=== PATIENT | male | born 1975 | race Caucasian/White ===

== ENCOUNTER 2022-04-19 19:56 | Observation (INO) | payer BC, SELFPAY ==
--- NOTE | ~2022-04-19 | XR_ITS ---
EXAMINATION: XR CHEST CLINICAL INFORMATION: Shortness of breath. COMPARISON: Chest radiograph 01/18/2017. TECHNIQUE: AP view of the chest was obtained. FINDINGS: Multifocal interstitial opacities. No pleural effusion. No pneumothorax. Stable appearance of the cardiomediastinal silhouette including prominence of the central pulmonary vasculature. No acute osseous abnormalities. EKG wires overlie the chest. XR/XR chest 1V IMPRESSION: Multifocal interstitial opacities are nonspecific but could be seen in the setting of atypical infection, correlate clinically. Repeat chest x-ray after treatment recommended.
[2022-04-19 20:13] VITALS: BP 148/92; PULSE 98; RESP 18; TEMP 36; O2SAT 100; BMI 28.7
--- NOTE | 2022-04-19 20:18 | ECG_ITS ---
Test Reason : swelling Blood Pressure : / mmHG Vent. Rate : 088 BPM Atrial Rate : 088 BPM P-R Int : 136 ms QRS Dur : 100 ms QT Int : 350 ms P-R-T Axes : 065 069 017 degrees QTc Int : 423 ms Sinus rhythm with Premature atrial complexes Septal infarct , age undetermined Abnormal ECG When compared with ECG of 16-OCT-2003 16:37, Premature atrial complexes are now Present Incomplete right bundle branch block is no longer Present Septal infarct is now Present Referred By: Generic ED Physician Electronically Signed By:Brian Winn
[2022-04-19 20:34] LABS: MANUAL DIFF FLAG NO
[2022-04-19 20:35] LABS: Basophils Percent Auto 0.4 % (0-2); Eosinophils Absolute Auto 0.1 X10*3/uL (0.0-0.4); Eosinophils Percent Auto 1.3 % (0-4); Hematocrit 38.1 % (42.0-52.0); Hemoglobin 13.7 g/dl (14.0-18.0); Imm Gran Abs Auto 0.01 X10*3/uL (0.00-0.03); Imm Gran Pct Auto 0.1 % (0.0-0.4); Lymphocytes Absolute Auto 2.1 X10*3/uL (1.2-4.9); Lymphocytes Percent Auto 25.9 % (20-40); Mean Corpuscular Hemoglobin 31.9 pg (27.0-33.0); Mean Corpuscular Volume 88.8 fL (80.0-98.0); Mean Platelet Volume 10.4 fL (9.4-12.4); Monocytes Absolute Auto 0.7 X10*3/uL (0.1-1.2); Monocytes Percent Auto 8.4 % (2-11); Neutrophils Absolute Auto 5.2 x10*3/uL (2.0-8.3); Neutrophils Percent Auto 63.9 % (45-73); Platelet Count 172 X10*3/uL (160-400); Red Blood Count 4.29 X10*6/uL (4.60-5.80); Red Cell Distribution Width 13.2 % (11.0-16.0); White Blood Count 8.2 X10*3/uL (4.8-10.8)
[2022-04-19 20:54] LABS: Alanine Aminotransferase 27 U/L (0-40); Albumin Level 3.6 g/dL (3.5-5.0); Alkaline Phosphatase 120 U/L (39-117); Anion Gap 11 (12-20); Aspartate Amino Transferase 9 U/L (5-37); Bilirubin Direct 0.5 mg/dL (0.0-0.5); Bilirubin Total 1.1 mg/dL (0.0-1.0); Blood Urea Nitrogen 11 mg/dL (9-16); Calcium 8.5 mg/dL (8.4-10.2); Carbon Dioxide 27 mmol/L (22-29); Chloride 105 mmol/L (96-108); Creatinine Clr Calc Pharmacy 112.5; Estimated Glomerular Filt Rate > 60; Glucose Random 188 mg/dL (60-115); Potassium 3.9 mmol/L (3.3-5.1); Sodium 139 mmol/L (135-145); Total Protein 6.1 g/dL (6.5-8.0)
[2022-04-19 21:01] LABS: B Type Natriuretic Peptide 346 pg/mL (<100); Troponin-I High Sensitivity 11.2 ng/L (<3.5-35.0)
[2022-04-19 22:24] VITALS: BP 155/92; PULSE 82; RESP 18; O2SAT 96
--- NOTE | 2022-04-19 22:50 | ED.GENADULT ---
HPI - General Adult General Chief complaint: General Medical Stated complaint: swollen feet, bloated Time Seen by Provider: 04/19/22 22:44 Source: patient and family Mode of arrival: ambulatory History of Present Illness HPI narrative: 46-year-old male, diabetic, presents with acute onset of shortness of breath as well for as noted bilateral feet swelling since this past that is not been associated with any fever, chills, sore throat, but he has had a cough and adamantly denies any chest pain/ racing heart/palpitations and states he has had some abdominal bloating without associated nausea, vomiting, diarrhea, patient has had a BM today and states that he is still passing flatus. Patient denies any urinary pain/ burning /frequency. 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 Related Data Allergies Allergy/AdvReac Type Severity Reaction Status Date / Time No Known Allergies Allergy Unverified 06/20/20 15:14 [No Known Allergies*] Review of Systems Review of Systems: Pertinent positives and negatives as stated in HPI 10 point Review of systems is otherwise negative. [facility] Past Medical History Source: nursing notes reviewed Social History Social History Advance Directives: No Advance Directives Information Provided: No Physical Exam ED Vital Signs: Vital Signs - 24 hr 04/19/22 20:13 04/19/22 22:24 Temperature 96.8 F Pulse Rate 98 82 Respiratory Rate 18 18 Blood Pressure 148/92 H 155/92 H Pulse Oximetry 100 96 Oxygen Delivery Method Room Air Room Air BMI result Body Mass Index 28.7 VITAL SIGNS: Reviewed. GENERAL: Well developed, well nourished, in no acute distress. HEAD: Normocephalic/atraumatic EYES: PERRLA, EOMI EARS: Ext canals without abnormality OROPHARYNX: no oral lesions noted, posterior pharynx clear LUNGS: Normal breath sounds. No adventitious sounds or accessory muscle use. SpO2<100> CARDIOVASCULAR: Regular rate and rhythm without noted murmurs, no JVD but bilateral lower feet swelling ABDOMEN: Soft, non-tender, non-distended with bowel sounds. MUSCULOSKELETAL: No tenderness, deformities, or effusions noted on gross inspection. EXTREMITIES: No cyanosis, clubbing or edema. SKIN: Inspection of the skin reveals no rashes NEUROLOGIC: Alert and oriented x 4. Strength and sensation to light touch were grossly intact x 4. Course Course Course Narrative: 46-year-old male with history and clinical presentation after review of all laboratory workup consistent with CHF exacerbation of unknown etiology but suspect cardiac despite serial troponins being flat and detectable there are Q-wave changes on EKG which were not present in 2004. Patient is otherwise asymptomatic for chest pain, COVID is negative, D-dimer -213. This case was discussed with Cardiology who recommends trending troponins, I discussed this case with the hospitalist who accepts admission. Patient was informed of all plans and results. Medical Decision Making Lab Data Result diagrams: 04/19/22 20:27 04/19/22 20:27 Labs: Lab Results 04/19/22 04/19/22 04/19/22 Range/Units 20:27 20:27 20:27 WBC 8.2 (4.8-10.8) X10*3/uL RBC 4.29 L (4.60-5.80) X10*6/uL Hgb 13.7 L (14.0-18.0) g/dl Hct 38.1 L (42.0-52.0) % MCV 88.8 (80.0-98.0) fL MCH 31.9 (27.0-33.0) pg MCHC 36.0 (31.0-36.0) g/dl RDW 13.2 (11.0-16.0) % Plt Count 172 (160-400) X10*3/uL MPV 10.4 (9.4-12.4) fL Immature Gran % (Auto) 0.1 (0.0-0.4) % Neut % (Auto) 63.9 (45-73) % Lymph % (Auto) 25.9 (20-40) % [place] % (Auto) 8.4 (2-11) % Eos % (Auto) 1.3 (0-4) % Baso % (Auto) 0.4 (0-2) % Lymph # (Auto) 2.1 (1.2-4.9) X10*3/uL [place] # (Auto) 0.7 (0.1-1.2) X10*3/uL Eos # (Auto) 0.1 (0.0-0.4) X10*3/uL Baso # (Auto) 0.0 (0.0-0.2) X10*3/uL Abs Immat Gran (auto) 0.01 (0.00-0.03) X10*3/uL Absolute Neuts (auto) 5.2 (2.0-8.3) x10*3/uL Absolute Nucleated RBC 0.000 (0.0-0.012) X10*3/uL Nucleated RBC % (auto) 0.0 (0.0-0.2) /100WBC D-Dimer High Sensitivty NG/ML Sodium 139 (135-145) mmol/L Potassium 3.9 (3.3-5.1) mmol/L Chloride 105 (96-108) mmol/L Carbon Dioxide 27 (22-29) mmol/L Anion Gap 11 L (12-20) BUN 11 (9-16) mg/dL Creatinine 0.81 (0.5-1.4) mg/dL Estim Creat Clear Calc 112.5 Estimated GFR > 60 Random Glucose 188 H (60-115) mg/dL Calcium 8.5 (8.4-10.2) mg/dL Total Bilirubin 1.1 H (0.0-1.0) mg/dL Direct Bilirubin 0.5 (0.0-0.5) mg/dL AST 9 (5-37) U/L ALT 27 (0-40) U/L Alkaline Phosphatase 120 H (39-117) U/L Troponin I High Sens 11.2 (<3.5-35.0) ng/L B-Natriuretic Peptide 346 H (<100) pg/mL Total Protein 6.1 L (6.5-8.0) g/dL Albumin 3.6 (3.5-5.0) g/dL Lipase 7 L (8-78) U/L COVID-19 (BUCKY) (Negative) COVID-19 Clin Com 04/19/22 04/19/22 04/19/22 Range/Units 23:21 23:26 23:26 WBC (4.8-10.8) X10*3/uL RBC (4.60-5.80) X10*6/uL Hgb (14.0-18.0) g/dl Hct (42.0-52.0) % MCV (80.0-98.0) fL MCH (27.0-33.0) pg MCHC (31.0-36.0) g/dl RDW (11.0-16.0) % Plt Count (160-400) X10*3/uL MPV (9.4-12.4) fL Immature Gran % (Auto) (0.0-0.4) % Neut % (Auto) (45-73) % Lymph % (Auto) (20-40) % [place] % (Auto) (2-11) % Eos % (Auto) (0-4) % Baso % (Auto) (0-2) % Lymph # (Auto) (1.2-4.9) X10*3/uL [place] # (Auto) (0.1-1.2) X10*3/uL Eos # (Auto) (0.0-0.4) X10*3/uL Baso # (Auto) (0.0-0.2) X10*3/uL Abs Immat Gran (auto) (0.00-0.03) X10*3/uL Absolute Neuts (auto) (2.0-8.3) x10*3/uL Absolute Nucleated RBC (0.0-0.012) X10*3/uL Nucleated RBC % (auto) (0.0-0.2) /100WBC D-Dimer High Sensitivty 213 NG/ML Sodium (135-145) mmol/L Potassium (3.3-5.1) mmol/L Chloride (96-108) mmol/L Carbon Dioxide (22-29) mmol/L Anion Gap (12-20) BUN (9-16) mg/dL Creatinine (0.5-1.4) mg/dL Estim Creat Clear Calc Estimated GFR Random Glucose (60-115) mg/dL Calcium (8.4-10.2) mg/dL Total Bilirubin (0.0-1.0) mg/dL Direct Bilirubin (0.0-0.5) mg/dL AST (5-37) U/L ALT (0-40) U/L Alkaline Phosphatase (39-117) U/L Troponin I High Sens 12.2 (<3.5-35.0) ng/L B-Natriuretic Peptide (<100) pg/mL Total Protein (6.5-8.0) g/dL Albumin (3.5-5.0) g/dL Lipase (8-78) U/L COVID-19 (BUCKY) Negative (Negative) COVID-19 Clin Com See Note ECG Data Attestation: I personally reviewed and interpreted this ECG as follows: Prior ECG tracings: available for review Interpretation: Sinus rhythm with PACs, Q-waves noted in V2/V3, no STEMI, HR- 88, NM / QRS / QTC are within normal limits. Critical Care Time Critical Care Time Critical Care Time: Yes Total Critical Care Time: 30 Attestation: I personally attest to this time spent taking care of the patient. Discharge Plan Discharge Patient Disposition: Admitted As Inpatient
[2022-04-19 23:15] LABS: Lipase 7 U/L (8-78)
[2022-04-19 23:42] LABS: D Dimer High Sensitivity 213 NG/ML
[2022-04-19 23:50] LABS: COVID-19 Test Negative (Negative)
[2022-04-19 23:53] LABS: Troponin-I High Sensitivity 12.2 ng/L (<3.5-35.0)
--- NOTE | 2022-04-20 00:02 | PM.IMHP ---
History of Present Illness Date of Service: 04/19/22 Chief Complaint: Shortness of breath, leg swelling This is a 39 male with history of diabetes, diet controlled hypertension, hyperlipidemia presents from home and progressively worsening dyspnea on exertion, and lower extremity swelling. Patient has also noticed fatigue and blood within the abdomen. Patient denies any chest pain, no palpitations, reports symptoms started few days ago y. He has no fever or chills, no abdominal pain nausea or vomiting, no diarrhea constipation, no urinary symptoms and no change in mentation. He is also complaining of PND and orthopnea. On arrival to the ED patient hemodynamically stable with a a slightly elevated BP Labs are significant for WBC count of 8.2, hemoglobin 13.7, BNP of 346, troponin of 11 increased to 12.2 Chest x-ray revealed multifocal interstitial opacities nonspecific. Patient will be admitted for further management Review of Systems Review of Systems: Yes all other systems are reviewed and are negative [facility] Medical History (Updated 04/20/22 @ 06:05 by Kris Gleason MD) Diabetes Hyperlipidemia Hypertension Family History (Updated 04/20/22 @ 06:05 by Kris Gleason MD) Father Coronary artery disease Pertinent family history: His father had a heart attack at the age of 64 Surgical History (Updated 04/20/22 @ 06:05 by Kris Gleason MD) No pertinent past surgical history Social History Patient Tobacco Use Status: Never used Tobacco Smoked in Last 30 Days: No Use of substances other than those prescribed or required for medical reasons: No Advance Directives: No Advance Directives Information Provided: No Meds Allergies Allergy/AdvReac Type Severity Reaction Status Date / Time No Known Allergies Allergy Unverified 06/20/20 15:14 [No Known Allergies*] Active Medications: Current Medications Acetaminophen (Acetaminophen 325 Mg Tablet) 650 mg PO Q6H PRN PRN Reason: Pain, Mild (Pain Scale 1-3) Docusate Sodium (Docusate Sodium 100 Mg Capsule) 100 mg PO DAILY PRN PRN Reason: Constipation Furosemide (Furosemide 40 Mg/4 Ml Vial) 40 mg IVPUSH DAILY ALIDA; Protocol Ondansetron HCl (Ondansetron Hcl 4 Mg/2 Ml Vial) 4 mg IVPUSH Q8H PRN PRN Reason: Nausea and Vomiting Sodium Chloride (0.9 % Sodium Chloride Flush 3 Ml Syringe) 3 ml IVFLUSH QSHIFT ALIDA Physical Exam Vital Signs and Narrative: Vital Signs: Last Vital Signs Temp 96.8 F 04/19/22 20:13 Pulse 82 04/19/22 22:24 Resp 18 04/19/22 22:24 BP 155/92 H 04/19/22 22:24 Pulse Ox 96 04/19/22 22:24 O2 Del Method 04/19/22 22:24 BMI result Body Mass Index 28.7 Const: General: cooperative and no acute distress Orientation/consciousness: patient oriented x3 Eyes: General: appearance normal, both eyes and all related structures Resp: Effort & Inspection: normal respiratory effort Auscultation: clear to auscultation bilaterally Cardio: Rate: regular rate Rhythm: regular rhythm GI: Palpation (GI): Soft to palpation Auscultation: normal bowel sounds Skin: General skin exam: no rashes or lesions noted Neuro: General: patient oriented x3 Cognition (Neuro): normal cognition Extrem: Other: Trace pedal edema in feet General: Yes normal to inspection Results Labs CBC and Chem 7: 04/19/22 20:27 04/19/22 20:27 Labs: Laboratory Results - last 24 hr 04/19/22 04/19/22 04/19/22 20:27 20:27 20:27 MCV 88.8 MCH 31.9 MCHC 36.0 RDW 13.2 Plt Count 172 MPV 10.4 Immature Gran % (Auto) 0.1 Neut % (Auto) 63.9 Lymph % (Auto) 25.9 [place] % (Auto) 8.4 Eos % (Auto) 1.3 Baso % (Auto) 0.4 Lymph # (Auto) 2.1 [place] # (Auto) 0.7 Eos # (Auto) 0.1 Baso # (Auto) 0.0 Abs Immat Gran (auto) 0.01 Absolute Neuts (auto) 5.2 Absolute Nucleated RBC 0.000 Nucleated RBC % (auto) 0.0 D-Dimer High Sensitivty Anion Gap 11 L Estim Creat Clear Calc 112.5 Estimated GFR > 60 Random Glucose 188 H Calcium 8.5 Total Bilirubin 1.1 H Direct Bilirubin 0.5 AST 9 ALT 27 Alkaline Phosphatase 120 H Troponin I High Sens 11.2 B-Natriuretic Peptide 346 H Total Protein 6.1 L Albumin 3.6 Lipase 7 L COVID-19 (BUCKY) COVID-19 Clin Com 04/19/22 04/19/22 04/19/22 23:21 23:26 23:26 MCV MCH MCHC RDW Plt Count MPV Immature Gran % (Auto) Neut % (Auto) Lymph % (Auto) [place] % (Auto) Eos % (Auto) Baso % (Auto) Lymph # (Auto) [place] # (Auto) Eos # (Auto) Baso # (Auto) Abs Immat Gran (auto) Absolute Neuts (auto) Absolute Nucleated RBC Nucleated RBC % (auto) D-Dimer High Sensitivty 213 Anion Gap Estim Creat Clear Calc Estimated GFR Random Glucose Calcium Total Bilirubin Direct Bilirubin AST ALT Alkaline Phosphatase Troponin I High Sens 12.2 B-Natriuretic Peptide Total Protein Albumin Lipase COVID-19 (BUCKY) Negative COVID-19 Clin Com See Note Imaging Radiologist's Impressions: Impressions Chest X-Ray 04/19/22 23:30 IMPRESSION: Multifocal interstitial opacities are nonspecific but could be seen in the setting of atypical infection, correlate clinically. Repeat chest x-ray after treatment recommended. Assessment and Plan (1) Acute exacerbation of CHF (congestive heart failure): Status: Acute (2) New onset of congestive heart failure: Status: Acute Plan 46-year-old male with past medical history of hypertension is controlled off medications at this time, diabetes, and HLD who presents to the hospital with complaints of leg swelling as well as dyspnea on exertion found to have new onset CHF # acute CHF exacerbation in the setting of new onset CHF - patient has evidence of volume overload on chest x-ray, as well as elevated BNP - patient has dyspnea on exertion, PND, orthopnea, trace pedal edema - will treat with Lasix - echocardiogram, low-sodium diet, strict I&O, daily weight - cardiology consult # HTN - patient reports that he has now controlled HTN with no medication - monitor BP # diabetes - diabetic diet -low-dose sliding scale insulin DVT prophylaxis: Lovenox Quality Stroke Does the patient have a stroke diagnosis?: No VTE Prior VTE?: No VTE Risk Level:: Medical - low VTE Device Contraindication: Treatment Not Indicated VTE Drug Contraindication: Treatment Not Indicated
[2022-04-20] MEDS: Furosemide 20 MG/2 ML VIAL IVPUSH (00:47)
[2022-04-20] MEDS: Acetaminophen 325 MG TABLET 650 MG PO (00:53)
--- NOTE | 2022-04-20 03:35 | PC.NURSE ---
pt resting comfortably on stretcher. on playground monitor., vital signs stable. no respiratory distress. using urinal at bedside. call kern within reach
[2022-04-20 03:38] VITALS: PULSE 71; RESP 20; O2SAT 98
[2022-04-20 04:33] VITALS: BP 119/73; PULSE 68; RESP 18; TEMP 36.6; O2SAT 93
[2022-04-20] MEDS: 0.9 % Sodium Chloride Flush 3 ML SYRINGE IVFLUSH ×4 (05:02→22:07)
[2022-04-20 06:03] VITALS: BP 119/73; PULSE 65; RESP 16; O2SAT 94
--- NOTE | 2022-04-20 07:00 | CA_ITS ---
Transthoracic Echocardiogram Patient (Last, First, Middle): Kannan Almeida A Gender: Male Date of : 1975 Age: 46 Procedure Date: 04/20/2022 Procedure Type: Transthoracic Echocardiogram Location: [facility] [place] Height: 167.64 cm Weight: 80.74 kg BSA: 1.90 m2 Heart Rate: bpm BP: 119 / 73 mmHg [employer] Equipment Repairer Inspector: Referring MD: Kris Gleason MD Symptoms: CHF? Study Quality: Good ECG Rhythm: Sinus Conclusions: - Normal left ventricular size and systolic function. There is mildly increased left ventricular wall thickness. The visually estimated ejection fraction is between 55-60%. - E/E prime ratio is between 8 and 15 consistent with indeterminate filling pressures. - Normal right ventricular cavity size and systolic function. - There is mild aortic valve stenosis. The peak aortic velocity is 2.23 m/s. - Mildly elevated right atrial pressure. Findings Left Ventricle Normal left ventricular size and systolic function. There is mildly increased left ventricular wall thickness. The visually estimated ejection fraction is between 55-60%. There is no evidence of regional wall motion abnormalities. Diastolic function is indeterminate on the basis of available data. E/E prime ratio is between 8 and 15 consistent with indeterminate filling pressures. Right Ventricle Normal right ventricular cavity size and systolic function. Atria The left atrium is likely dilated. Aortic Valve The aortic valve was not well visualized. There is mild calcification of the aortic valve. There is mild aortic valve stenosis. The peak aortic velocity is 2.23 m/s. There is no aortic valve regurgitation. Cannot rule out bicuspid aortic valve. Mitral Valve Normal mitral valve structure and function. There is trace mitral valve regurgitation. There is no mitral valve stenosis. Pulmonic Valve The pulmonic valve is likely normal. There is trace pulmonic valve regurgitation. Tricuspid Valve Normal tricuspid valve structure and function. There is trace tricuspid valve regurgitation. Mildly elevated right atrial pressure. There is no evidence of pulmonary hypertension. Great Vessels All visible segments of the aorta are normal in size. The visualized portions of the pulmonary artery and branches are normal. Venous The inferior vena cava is dilated and collapses greater than 50% with inspiration. Pericardium/Pleural There is no evidence of pericardial effusion. Prior Study Comparison No prior study available for comparison. Measurements 2D Linear Measurements IVSd: 1.08 0.6-0.9/0.6-1.0 cm LVIDd: 4.79 3.9-5.3/4.2-5.9 cm LVIDd Index: 2.52 2.4-3.2/2.2-3.1 cm/m2 LVIDs: 3.18 2.0-3.6 cm LVPWd: 1.11 0.7-1.1 cm Ao Root: 3.60 2.1-3.5 cm LA Diam: 4.20 2.7-3.8/3.0-4.0 cm LAIDs Index: 2.21 1.5-2.3 cm/m2 LV Mass: 239.37 67-162/88-224 g LV Mass Index: 125.99 43-95/49-115 g/m2 LVOT Diam: 2.00 3.0+(-)1.3 cm 2D Systolic Function EF 4C: 55.70 >55% EF 2C: 62.70 >55% EF BiP: 60.00 >55% Mitral Valve MV Pk E: 1.08 MV PK A: 0.78 MV Decel Time: 160.00 E/A: 1.40 E'Lateral: 8.92 E'Medial: 9.03 E/E' Med: 12.00 E/E' Lat: 12.10 PHT: 47.00 MVA PHT: 4.68 Decel Mckean: 6.73 Aortic Valve AoV Pk Bo: 2.23 AoV Mn Bo: 1.57 AoV VTI: 0.50 AoV Pk Grad: 20.00 Aov Mn Grad: 11.00 MARIO ALBERTO Cont.VTI: 1.79 LVOT LVOT Pk Bo: 1.13 LVOT Mn Bo: 0.85 LVOT VTI: 0.29 LVOT Pk Grad: 5.00 LVOT Mn Grad: 3.00 LVOT Diam: 2.00 LVOT Area: 3.14 Diastolic Function MV Pk E: 1.08 MV Pk A: 0.78 E/A: 1.40 E'Medial: 9.03 E/E' Med: 12.00 E' Laterial: 8.92 E/E' Lat: 12.10 Tricuspid Valve TR Pk Bo: 2.24 TR Pk Grad: 20.00 RA Press: 8.00 RVSP: 28.00 Great [place]essels Aorta Ao Root-2D: 3.60 2.0-3.7 cm Ao Asc: 3.20 2.1-3.4 cm Pulmonary Valve PV Pk Bo: 1.13 Peak PV Grad: 5.00 Updated in Other Vendor System with Status of Final Brian Winn MD electronically signed on 04/20/2022 12:33:14 PM with status of Final
[2022-04-20 07:41] LABS: MANUAL DIFF FLAG NO
[2022-04-20 07:45] LABS: Basophils Percent Auto 0.5 % (0-2); Eosinophils Absolute Auto 0.2 X10*3/uL (0.0-0.4); Eosinophils Percent Auto 2.4 % (0-4); Hematocrit 39.1 % (42.0-52.0); Imm Gran Abs Auto 0.01 X10*3/uL (0.00-0.03); Imm Gran Pct Auto 0.2 % (0.0-0.4); Lymphocytes Absolute Auto 2.1 X10*3/uL (1.2-4.9); Lymphocytes Percent Auto 31.6 % (20-40); Mean Corpuscular HGB Conc 35.8 g/dl (31.0-36.0); Mean Corpuscular Volume 89.3 fL (80.0-98.0); Mean Platelet Volume 10.4 fL (9.4-12.4); Monocytes Absolute Auto 0.7 X10*3/uL (0.1-1.2); Monocytes Percent Auto 10.6 % (2-11); Neutrophils Absolute Auto 3.6 x10*3/uL (2.0-8.3); Neutrophils Percent Auto 54.7 % (45-73); Platelet Count 177 X10*3/uL (160-400); Red Blood Count 4.38 X10*6/uL (4.60-5.80); Red Cell Distribution Width 13.2 % (11.0-16.0); White Blood Count 6.6 X10*3/uL (4.8-10.8)
[2022-04-20 07:55] LABS: Glucose, Whole Blood 148 mg/dL (60-115)
[2022-04-20 08:00] LABS: Anion Gap 12 (12-20); Blood Urea Nitrogen 13 mg/dL (9-16); Calcium 8.6 mg/dL (8.4-10.2); Carbon Dioxide 29 mmol/L (22-29); Chloride 104 mmol/L (96-108); Estimated Glomerular Filt Rate > 60; Glucose Random 189 mg/dL (60-115); Potassium 4.4 mmol/L (3.3-5.1); Sodium 141 mmol/L (135-145)
--- NOTE | 2022-04-20 09:15 | PM.CNCAR ---
History of Present Illness History of Present Illness Date of Service: 04/20/22 Requesting physician: Kamlesh Guardado Chief complaint: CHF Narrative: 46-year-old gentleman who is presenting with ankle edema, abdominal distension, shortness of breath and orthopnea over the last couple of days. He said he was feeling fine and was quite active as of last week. He is saying that he regularly goes to gym without any exertional symptoms. He usually lifts weight there and does not do any cardio. His day-to-day life he is quite active and walks significantly and did not have any symptoms. Last week he played golf and did not have any symptoms at that time too. He is now presenting with shortness of breath and clinically diagnosed as congestive heart failure. He has been started on IV diuretics with good response and feeling somewhat better. Denying any chest discomfort. He has background diabetes, hypertension and hyperlipidemia. He is a nonsmoker. He drinks occasionally. [facility] Past Medical History Medical History (Updated 04/20/22 @ 06:05 by Kris Gleason MD) Diabetes Hyperlipidemia Hypertension Family History Family History (Updated 04/20/22 @ 06:05 by Kris Gleason MD) Father Coronary artery disease Surgical History Surgical History (Updated 04/20/22 @ 06:05 by Kris Gleason MD) No pertinent past surgical history Social History Social History Patient Tobacco Use Status: Never used Tobacco Smoked in Last 30 Days: No Use of substances other than those prescribed or required for medical reasons: No Advance Directives: No Advance Directives Information Provided: No Meds Allergies Allergy/AdvReac Type Severity Reaction Status Date / Time No Known Allergies Allergy Unverified 06/20/20 15:14 [No Known Allergies*] Active Medications: Current Medications Acetaminophen (Acetaminophen 325 Mg Tablet) 650 mg PO Q6H PRN PRN Reason: Pain, Mild (Pain Scale 1-3) Last Admin: 04/20/22 00:53 Dose: 650 mg Dextrose (Dextrose 50 % 25 Gm/50 Ml Syringe) 25 gm IVPUSH Q15M PRN; Protocol PRN Reason: per Hypoglycemia Standing Ord. Docusate Sodium (Docusate Sodium 100 Mg Capsule) 100 mg PO DAILY PRN PRN Reason: Constipation Furosemide (Furosemide 40 Mg/4 Ml Vial) 40 mg IVPUSH DAILY [facility]; Protocol Glucose (Glucose Gel 15 Gm Gel..Gram.) 15 gm PO Q15M PRN; Protocol PRN Reason: per Hypoglycemia Standing Ord. Insulin Human Lispro (Insulin Lispro 100 Unit/Ml 3 Ml Vial) 0 unit SUBCUT QIDACHS [facility]; Protocol Last Admin: 04/20/22 08:06 Dose: Not Given Ondansetron HCl (Ondansetron Hcl 4 Mg/2 Ml Vial) 4 mg IVPUSH Q8H PRN PRN Reason: Nausea and Vomiting Sodium Chloride (0.9 % Sodium Chloride Flush 3 Ml Syringe) 3 ml IVFLUSH QSHIFT [facility] Last Admin: 04/20/22 05:02 Dose: 3 ml Home Medications Medication Instructions Recorded Confirmed Last Taken Type atorvastatin 20 mg tablet 1 tab PO DAILY 04/20/22 04/20/22 04/18/22 History metformin 1,000 mg tablet 2,000 mg PO DAILY 04/20/22 04/20/22 04/18/22 History Physical Exam Vital Signs: Vital Signs: Last Vital Signs Temp 97.9 F 04/20/22 04:33 Pulse 65 04/20/22 06:03 Resp 16 04/20/22 06:03 BP 119/73 04/20/22 06:03 Pulse Ox 94 04/20/22 06:03 O2 Del Method 04/20/22 06:03 BMI result Body Mass Index 28.7 GENERAL APPEARANCE: in no acute distress, pleasant. NECK: no carotid bruit, + JVD. SKIN: no suspicious lesions, warm and dry. HEART: no murmurs, regular rate and rhythm. LUNGS: clear to auscultation bilaterally. ABDOMEN: soft, nontender. EXTREMITIES: no edema. PERIPHERAL PULSES: equal. NEUROLOGIC: No gross deficits, AAO X 3 Objective Labs and Meds Result diagrams: 04/20/22 07:25 04/20/22 07:25 Lab results: Laboratory Results - last 24 hr 04/19/22 04/19/22 04/19/22 20:27 20:27 20:27 WBC 8.2 RBC 4.29 L Hgb 13.7 L Hct 38.1 L MCV 88.8 MCH 31.9 MCHC 36.0 RDW 13.2 Plt Count 172 MPV 10.4 Immature Gran % (Auto) 0.1 Neut % (Auto) 63.9 Lymph % (Auto) 25.9 [place] % (Auto) 8.4 Eos % (Auto) 1.3 Baso % (Auto) 0.4 Lymph # (Auto) 2.1 [place]ett # (Auto) 0.7 Eos # (Auto) 0.1 Baso # (Auto) 0.0 Abs Immat Gran (auto) 0.01 Absolute Neuts (auto) 5.2 Absolute Nucleated RBC 0.000 Nucleated RBC % (auto) 0.0 D-Dimer High Sensitivty Sodium 139 Potassium 3.9 Chloride 105 Carbon Dioxide 27 Anion Gap 11 L BUN 11 Creatinine 0.81 Estim Creat Clear Calc 112.5 Estimated GFR > 60 POC Glucose Random Glucose 188 H Calcium 8.5 Total Bilirubin 1.1 H Direct Bilirubin 0.5 AST 9 ALT 27 Alkaline Phosphatase 120 H Troponin I High Sens 11.2 B-Natriuretic Peptide 346 H Total Protein 6.1 L Albumin 3.6 Lipase 7 L COVID-19 ([facility]) COVID-19 Clin Com 04/19/22 04/19/22 04/19/22 23:21 23:26 23:26 WBC RBC Hgb Hct MCV MCH MCHC RDW Plt Count MPV Immature Gran % (Auto) Neut % (Auto) Lymph % (Auto) [place]ett % (Auto) Eos % (Auto) Baso % (Auto) Lymph # (Auto) [place]ett # (Auto) Eos # (Auto) Baso # (Auto) Abs Immat Gran (auto) Absolute Neuts (auto) Absolute Nucleated RBC Nucleated RBC % (auto) D-Dimer High Sensitivty 213 Sodium Potassium Chloride Carbon Dioxide Anion Gap BUN Creatinine Estim Creat Clear Calc Estimated GFR POC Glucose Random Glucose Calcium Total Bilirubin Direct Bilirubin AST ALT Alkaline Phosphatase Troponin I High Sens 12.2 B-Natriuretic Peptide Total Protein Albumin Lipase COVID-19 ([facility]Y) Negative COVID-19 Clin Com See Note 04/20/22 04/20/22 04/20/22 07:25 07:25 07:52 WBC 6.6 RBC 4.38 L Hgb 14.0 Hct 39.1 L MCV 89.3 MCH 32.0 MCHC 35.8 RDW 13.2 Plt Count 177 MPV 10.4 Immature Gran % (Auto) 0.2 Neut % (Auto) 54.7 Lymph % (Auto) 31.6 [place]ett % (Auto) 10.6 Eos % (Auto) 2.4 Baso % (Auto) 0.5 Lymph # (Auto) 2.1 Pickett # (Auto) 0.7 Eos # (Auto) 0.2 Baso # (Auto) 0.0 Abs Immat Gran (auto) 0.01 Absolute Neuts (auto) 3.6 Absolute Nucleated RBC 0.000 Nucleated RBC % (auto) 0.0 D-Dimer High Sensitivty Sodium 141 Potassium 4.4 Chloride 104 Carbon Dioxide 29 Anion Gap 12 BUN 13 Creatinine 0.86 Estim Creat Clear Calc 106.0 Estimated GFR > 60 POC Glucose 148 H Random Glucose 189 H Calcium 8.6 Total Bilirubin Direct Bilirubin AST ALT Alkaline Phosphatase Troponin I High Sens B-Natriuretic Peptide Total Protein Albumin Lipase COVID-19 ([facility]Y) COVID-19 Clin Com Imaging Radiologist's impression: Impressions Chest X-Ray 04/19/22 23:30 IMPRESSION: Multifocal interstitial opacities are nonspecific but could be seen in the setting of atypical infection, correlate clinically. Repeat chest x-ray after treatment recommended. Assessment and Plan (1) New onset of congestive heart failure: Status: Acute Plan 46-year-old gentleman presented with the onset congestive heart failure. He has background history of diabetes hypertension hyperlipidemia. EKG showing poor R-wave progression and cannot rule out an old anterior infarct. We will check echocardiogram to assess LV for any structural issues like infarct and assess his ejection fraction. Clinically he still looks volume overloaded. I agree with IV diuretics. Start losartan 25 mg once a day. We will review echocardiogram and give further recommendations. Thank you for allowing me to participate in the care of your patient. Please feel free to contact me if you have any questions. Procedures Date of Service Date of Service: 04/20/22
[2022-04-20] MEDS: Furosemide 40 MG/4 ML VIAL IVPUSH (09:56)
[2022-04-20 10:00] VITALS: BP 119/73; PULSE 83; RESP 18; O2SAT 97
--- NOTE | 2022-04-20 10:16 | PHA.MEDREC ---
Pharmacy Consult ? Medication Reconciliation Pharmacy has completed the medication reconciliation. Patient confirmed all medications. Yany Masterson, DottyD
[2022-04-20 11:04] LABS: Estimated Average Glucose 237 mg/dL; Hemoglobin A1c % 9.9 %
--- NOTE | 2022-04-20 12:53 | HO.PM.IMPN ---
Subjective Subjective Date of Service: 04/20/22 Interval History: the patient was seen and evaluated this morning Laying in bed, feels comfortable Denies any fever, chills and feels improvement in his shortness of breath No reported other overnight events. Systemic review: No fever, chills or weakness No chest pain, palpitation Edema is improving No shortness of breath or coughing No abdominal pain, nausea or vomiting No urinary symptoms No any rash or wounds Physical Exam Vital Signs: Vital Signs: Last Vital Signs Temp 97.9 F 04/20/22 04:33 Pulse 83 04/20/22 10:00 Resp 18 04/20/22 10:00 BP 119/73 04/20/22 10:00 Pulse Ox 97 04/20/22 10:00 O2 Del Method 04/20/22 10:00 BMI result Body Mass Index 28.7 Const: Other: Constitutional : Alert, oriented, not in distress Neck : Normal inspection, Supple Cardiovascular : RRR, no JVP, trace bilateral lower extremity edema Respiratory : fair bilateral air entry, no crackles, wheezes or rhonchi Gastrointestinal: soft, lax, Normal bowel sounds, Non tender Skin : Warm, Dry Neurological : Alert & oriented x3, No focal deficit , CN 2-12 within normal Objective Data Active Medications Acetaminophen (Acetaminophen 325 Mg Tablet) 650 mg PO Q6H PRN PRN Reason: Pain, Mild (Pain Scale 1-3) Last Admin: 04/20/22 00:53 Dose: 650 mg Documented By: EAMON Atorvastatin Calcium (Atorvastatin Calcium 20 Mg Tablet) 20 mg PO DAILY [facility] Dextrose (Dextrose 50 % 25 Gm/50 Ml Syringe) 25 gm IVPUSH Q15M PRN; Protocol PRN Reason: per Hypoglycemia Standing Ord. Docusate Sodium (Docusate Sodium 100 Mg Capsule) 100 mg PO DAILY PRN PRN Reason: Constipation Furosemide (Furosemide 40 Mg/4 Ml Vial) 40 mg IVPUSH DAILY [facility]; Protocol Last Admin: 04/20/22 09:56 Dose: 40 mg Documented By: VLADIMIR Glucose (Glucose Gel 15 Gm Gel..Gram.) 15 gm PO Q15M PRN; Protocol PRN Reason: per Hypoglycemia Standing Ord. Insulin Human Lispro (Insulin Lispro 100 Unit/Ml 3 Ml Vial) 0 unit SUBCUT QIDACHS [facility]; Protocol Last Admin: 04/20/22 08:06 Dose: Not Given Documented By: VLADIMIR Non-Admin Reason: See Note Ondansetron HCl (Ondansetron Hcl 4 Mg/2 Ml Vial) 4 mg IVPUSH Q8H PRN PRN Reason: Nausea and Vomiting Sodium Chloride (0.9 % Sodium Chloride Flush 3 Ml Syringe) 3 ml IVFLUSH QSHIFT [facility] Last Admin: 04/20/22 09:55 Dose: 3 ml Documented By: VLADIMIR Labs CBC & Chem 7: 04/20/22 07:25 04/20/22 07:25 Labs: Laboratory Results - last 24 hr 04/19/22 04/19/22 04/19/22 20:27 20:27 20:27 MCV 88.8 MCH 31.9 MCHC 36.0 RDW 13.2 Plt Count 172 MPV 10.4 Immature Gran % (Auto) 0.1 Neut % (Auto) 63.9 Lymph % (Auto) 25.9 [place] % (Auto) 8.4 Eos % (Auto) 1.3 Baso % (Auto) 0.4 Lymph # (Auto) 2.1 [place] # (Auto) 0.7 Eos # (Auto) 0.1 Baso # (Auto) 0.0 Abs Immat Gran (auto) 0.01 Absolute Neuts (auto) 5.2 Absolute Nucleated RBC 0.000 Nucleated RBC % (auto) 0.0 D-Dimer High Sensitivty Anion Gap 11 L Estim Creat Clear Calc 112.5 Estimated GFR > 60 POC Glucose Random Glucose 188 H Estimat Average Glucose Hemoglobin A1c % Calcium 8.5 Total Bilirubin 1.1 H Direct Bilirubin 0.5 AST 9 ALT 27 Alkaline Phosphatase 120 H Troponin I High Sens 11.2 B-Natriuretic Peptide 346 H Total Protein 6.1 L Albumin 3.6 Lipase 7 L COVID-19 ([facility]) COVID-19 Clin Com 04/19/22 04/19/22 04/19/22 23:21 23:26 23:26 MCV MCH MCHC RDW Plt Count MPV Immature Gran % (Auto) Neut % (Auto) Lymph % (Auto) [place] % (Auto) Eos % (Auto) Baso % (Auto) Lymph # (Auto) [place] # (Auto) Eos # (Auto) Baso # (Auto) Abs Immat Gran (auto) Absolute Neuts (auto) Absolute Nucleated RBC Nucleated RBC % (auto) D-Dimer High Sensitivty 213 Anion Gap Estim Creat Clear Calc Estimated GFR POC Glucose Random Glucose Estimat Average Glucose Hemoglobin A1c % Calcium Total Bilirubin Direct Bilirubin AST ALT Alkaline Phosphatase Troponin I High Sens 12.2 B-Natriuretic Peptide Total Protein Albumin Lipase COVID-19 ([facility]Y) Negative COVID-19 Clin Com See Note 04/20/22 04/20/22 04/20/22 07:25 07:25 07:25 MCV 89.3 MCH 32.0 MCHC 35.8 RDW 13.2 Plt Count 177 MPV 10.4 Immature Gran % (Auto) 0.2 Neut % (Auto) 54.7 Lymph % (Auto) 31.6 Treasure % (Auto) 10.6 Eos % (Auto) 2.4 Baso % (Auto) 0.5 Lymph # (Auto) 2.1 Treasure # (Auto) 0.7 Eos # (Auto) 0.2 Baso # (Auto) 0.0 Abs Immat Gran (auto) 0.01 Absolute Neuts (auto) 3.6 Absolute Nucleated RBC 0.000 Nucleated RBC % (auto) 0.0 D-Dimer High Sensitivty Anion Gap 12 Estim Creat Clear Calc 106.0 Estimated GFR > 60 POC Glucose Random Glucose 189 H Estimat Average Glucose 237 Hemoglobin A1c % 9.9 Calcium 8.6 Total Bilirubin Direct Bilirubin AST ALT Alkaline Phosphatase Troponin I High Sens B-Natriuretic Peptide Total Protein Albumin Lipase COVID-19 ([facility]CKY) COVID-19 Clin Com 04/20/22 07:52 MCV MCH MCHC RDW Plt Count MPV Immature Gran % (Auto) Neut % (Auto) Lymph % (Auto) Treasure % (Auto) Eos % (Auto) Baso % (Auto) Lymph # (Auto) Treasure # (Auto) Eos # (Auto) Baso # (Auto) Abs Immat Gran (auto) Absolute Neuts (auto) Absolute Nucleated RBC Nucleated RBC % (auto) D-Dimer High Sensitivty Anion Gap Estim Creat Clear Calc Estimated GFR POC Glucose 148 H Random Glucose Estimat Average Glucose Hemoglobin A1c % Calcium Total Bilirubin Direct Bilirubin AST ALT Alkaline Phosphatase Troponin I High Sens B-Natriuretic Peptide Total Protein Albumin Lipase COVID-19 ([facility]) COVID-19 Clin Com Assessment and Plan (1) New onset of congestive heart failure: Status: Acute Plan 46-year-old male with past medical history of hypertension is controlled off medications at this time, diabetes, and HLD who presents to the hospital with complaints of leg swelling as well as dyspnea on exertion found to have new onset CHF # new onset diastolic CHF evidence of volume overload on chest x-ray elevated BNP Reporting dyspnea on exertion, PND, orthopnea, trace pedal edema EKG showing poor R-wave progression and cannot rule out an old anterior infarct. Continue IV Lasix Echo showing normal EF low-sodium diet, strict I&O, daily weight Start losartan Cardiology input appreciated # HTN Start losartan # diabetes diabetic diet low-dose sliding scale insulin DVT prophylaxis: Lovenox The patient will likely need overnight hospital stay to finish workup for new onset heart failure and possible ischemic workup. Quality Stroke Does the patient have a stroke diagnosis?: No VTE Prior VTE?: No VTE Risk Level:: Medical - low VTE Device Contraindication: Treatment Not Indicated VTE Drug Contraindication: Treatment Not Indicated
--- NOTE | 2022-04-20 16:20 | MHC.CM.PN ---
[place] addressed with patient, original to patient and copy to chart Patient lives with his , Carline. He is independent at home and community. No DME or services at home. PCP: ORLY Anthony x2 [facility]. Spouse will transport home. HCP form completed, originial and copies to pt, copy uploaded. D/C Plan: Home (self-care)
[2022-04-20 21:43] VITALS: BMI 29.2
[2022-04-20 22:02] LABS: Glucose, Whole Blood 326 mg/dL (60-115)
[2022-04-20 22:03] VITALS: BP 140/82; PULSE 79; RESP 20; TEMP 37; O2SAT 94
[2022-04-20] MEDS: Insulin Lispro 100 UNIT/ML 3 ML VIAL SUBCUT (22:06)
[2022-04-20 23:56] VITALS: BP 157/99; PULSE 81; RESP 18; TEMP 36.9; O2SAT 93
[2022-04-21 03:36] VITALS: BP 138/75; PULSE 72; RESP 18; TEMP 36.7; O2SAT 96
[2022-04-21 06:59] VITALS: BP 162/93; PULSE 76; RESP 18; TEMP 36.8; O2SAT 95
[2022-04-21 07:10] VITALS: BMI 29.1
[2022-04-21 07:33] LABS: Glucose, Whole Blood 199 mg/dL (60-115)
[2022-04-21 07:40] LABS: Anion Gap 13 (12-20); Blood Urea Nitrogen 15 mg/dL (9-16); Calcium 8.9 mg/dL (8.4-10.2); Carbon Dioxide 30 mmol/L (22-29); Chloride 101 mmol/L (96-108); Creatinine Clr Calc Pharmacy 106.6; Estimated Glomerular Filt Rate > 60; Glucose Random 225 mg/dL (60-115); Potassium 4.3 mmol/L (3.3-5.1); Sodium 140 mmol/L (135-145)
[2022-04-21 07:46] LABS: B Type Natriuretic Peptide 64 pg/mL (<100)
[2022-04-21] MEDS: Insulin Lispro 100 UNIT/ML 3 ML VIAL SUBCUT ×2 (08:28→11:57)
[2022-04-21] MEDS: Atorvastatin Calcium 20 MG TABLET PO (08:29)
[2022-04-21] MEDS: 0.9 % Sodium Chloride Flush 3 ML SYRINGE IVFLUSH (08:29)
[2022-04-21] MEDS: Furosemide 40 MG/4 ML VIAL IVPUSH (08:29)
[2022-04-21 11:03] VITALS: BP 132/82; PULSE 76; RESP 18; TEMP 37.3; O2SAT 95
[2022-04-21 11:34] LABS: Glucose, Whole Blood 280 mg/dL (60-115)
[2022-04-21] MEDS: Losartan Potassium 25 MG TABLET PO (11:57)
--- NOTE | 2022-04-21 11:57 | P.DS_ITS ---
DS: Providers Provider Date of Service: 04/21/22 Date of admission: 04/19/22 23:54 Primary care physician: Virgen Bey DNP Consults: 04/19/22 23:54 Consult to Cardiology Routine Consulting Provider: Broderick Holt Reason for consultation: CHF Has provider been notified: Yes DS: Diagnosis Discharge Diagnosis (1) New onset of congestive heart failure: Status: Resolved (2) Uncontrolled diabetes mellitus with hyperglycemia: Status: Acute DS: Summary Hospital Course Hospital Course: Admission note HPI This is a 39 male with history of diabetes, diet controlled hypertension, hyperlipidemia presents from home and progressively worsening dyspnea on exertion, and lower extremity swelling.? Patient has also noticed fatigue and blood within the abdomen.? Patient denies any chest pain, no palpitations, reports symptoms started few days ago y.? He has no fever or chills, no abdominal pain nausea or vomiting, no diarrhea constipation, no urinary symptoms and no change in mentation.? He is also complaining of PND and orthopnea. On arrival to the ED patient hemodynamically stable with a a slightly elevated BP Labs are significant for WBC count of 8.2, hemoglobin 13.7, BNP of 346, troponin of 11 increased to 12.2 Chest x-ray revealed multifocal interstitial opacities nonspecific.? Patient will be admitted for further management Hospital course The patient was admitted for evaluation of fluid overload. Found to have elevated BNP with evidence of fluid overload and his chest x-ray raising suspicion of heart failure of new onset. Echo was done showing EF of 55-60% With elevated right atrial pressure. treated with IV Lasix with good response as BNP improved from 350 to normal range and edema, dyspnea resolved. The patient was able to ambulate on room air with no reported dyspnea. Cardiology evaluated the patient and recommended starting losartan, Lasix at time of discharge and to follow-up as outpatient for stress test. Atorvastatin dose was increased to 40 mg daily. HbA1c of 9.8. He was advised a tighter control of his diabetes. Glipizide prescribed with plan to follow-up with his PCP for further adjustments. will need better control of your diabetes. Glipizide 5 mg prescribed. To be followed by your PCP for further adjustments. Increase atorvastatin to 40 mg daily Start losartan 25 mg daily and monitor your blood pressure at home Start Lasix 20 mg daily To repeat blood test as outpatient to follow with Cardiology for stress test. Time Spent with Patient Time attestation: Total time spent providing and/or coordinating discharge services: Discharge coordination time: Greater than 30 minutes Quality: Safe Use of Opioids Does Pt have an Active Cancer Diagnosis on the Problem List?: No Quality: Stroke Does the patient have a stroke diagnosis?: No Physical Exam Vital Signs: Vital Signs: Last Vital Signs Temp 99.2 F 04/21/22 11:03 Pulse 76 04/21/22 11:03 Resp 18 04/21/22 11:03 BP 132/82 04/21/22 11:03 Pulse Ox 95 04/21/22 11:03 O2 Del Method 04/21/22 11:03 BMI result Body Mass Index 29.1 Const: Other: Constitutional : Alert, oriented, not in distress Neck : Normal inspection, Supple Cardiovascular : RRR, no JVP, No lower extremity edema Respiratory : fair bilateral air entry, no crackles, wheezes or rhonchi Gastrointestinal: soft, lax, Normal bowel sounds, Non tender Skin : Warm, Dry Neurological : Alert & oriented x3, No focal deficit , CN 2-12 within normal DS: Data Data Completed and Pending Labs on day of discharge: Laboratory Results - last 24 hr 04/20/22 04/21/22 04/21/22 21:58 06:37 06:37 Sodium 140 Potassium 4.3 Chloride 101 Carbon Dioxide 30 H Anion Gap 13 BUN 15 Creatinine 0.86 Estim Creat Clear Calc 106.6 Estimated GFR > 60 POC Glucose 326 H Random Glucose 225 H Calcium 8.9 B-Natriuretic Peptide 64 04/21/22 04/21/22 07:04 11:08 Sodium Potassium Chloride Carbon Dioxide Anion Gap BUN Creatinine Estim Creat Clear Calc Estimated GFR POC Glucose 199 H 280 H Random Glucose Calcium B-Natriuretic Peptide Imaging Chest x-ray: Radiologist's impression: ITS Impressions Chest X-Ray 04/19/22 23:30 IMPRESSION: Multifocal interstitial opacities are nonspecific but could be seen in the setting of atypical infection, correlate clinically. Repeat chest x-ray after treatment recommended. Discharge Plan Discharge Patient Disposition: Home, Self-Care Discharge Diagnosis: New onset heart failure Referrals: Virgen Bey, PASHA, CASE PLANNER, NON DESTRUCTIVE TESTING TECHNICIAN-C [Primary Care Provider] - 1 Week Discharge Medications: New losartan 25 mg Tablet 25 mg PO DAILY 30 Days Qty: 30 0RF Protocol: Hold for SBP< HOLD for SBP < : 90 furosemide 20 mg tablet 20 mg PO QAM Qty: 30 0RF atorvastatin 40 mg tablet 40 mg PO BEDTIME Qty: 30 0RF glipizide 5 mg tablet extended release 24hr 5 mg PO DAILY Qty: 30 0RF Continued metformin 1,000 mg tablet 2,000 mg PO DAILY Discontinued atorvastatin 20 mg tablet 1 tab PO DAILY Discharge Orders: Discharge Order (Routine); Ordered 04/21/22 Ordered By: Kamlesh Guardado Diet: Diabetic diet Activity on Discharge: As tolerated Stand Alone Forms: Patient Portal Discharge page, Work/School Release Care Plan Goals: Read below Health Concerns: Read below Plan of Treatment: Read below Assessment: you were admitted to the hospital for evaluation of fluid overload. Treated for an evidence of heart failure exacerbation of new onset with IV water pills with good response. Evaluated by herpetology teacher as an echo was done showing within normal heart function. We have concerns over a possible silent heart attack previously which will need further evaluation as outpatient with a stress test. You will need better control of your diabetes. Glipizide 5 mg prescribed. To be followed by your PCP for further adjustments. Increase atorvastatin to 40 mg daily Start losartan 25 mg daily and monitor your blood pressure at home Start Lasix 20 mg daily To repeat blood test as outpatient to follow with Cardiology dr Winn for stress test. Discharge Date/Time: 04/21/22 15:57
--- NOTE | 2022-04-21 13:14 | MHC.CM.PN ---
HOME TODAY - SELF CARE
== END 2022-04-21 15:57 | disposition home or self-care (01) ==
LOC: HO.ED 23:06 → HO.EDOVER 04-20 00:04 → HO.S3 04-20 20:14
PROVIDERS: Admitting Provider Internal Medicine; Emergency Provider Student in an Organized Health Care Education/Training Program; PCP Registered Nurse; Visit Provider Student in an Organized Health Care Education/Training Program
DX: I11.0 Hypertensive heart disease with heart failure (principal); I50.9 Heart failure, unspecified; E11.65 Type 2 diabetes mellitus with hyperglycemia; R94.31 Abnormal electrocardiogram [ECG] [EKG]; R60.0 Localized edema; R06.02 Shortness of breath; R06.01 Orthopnea; Z20.822 Contact with and (suspected) exposure to COVID-19; E78.5 Hyperlipidemia, unspecified; Z79.899 Other long term (current) drug therapy; Z79.4 Long term (current) use of insulin
CPT/HCPCS: 36415; 71045; 80048; 80053; 82248; 82947; 83036; 83690; 83880; 84484; 85025; 85379; 87635; 93005; 93306; 96374; 96375; 99218; 99285; J1940

== ENCOUNTER 2023-06-26 11:42 | Outpatient (AMB) | payer BC, SELFPAY ==
[2023-06-26 13:57] VITALS: BP 162/90; PULSE 98; TEMP 36.9; O2SAT 99; BMI 27.3
--- NOTE | 2023-06-26 13:57 | MHC.OFFWIV ---
Intake Vital Signs 06/26/23 13:57 Height 5 ft 6 in Weight 169 lb BMI 27.3 BP 162/90 H Blood Pressure Location Rt brachial Position Sitting Pulse 98 Pulse Source Pulse Oximeter Temp 98.4 F Temp Source Temporal Artery Scan Pulse Oximetry (%) 99 Intake Visit Reasons: EST/left hand cellulitis? Intake Note: pt is here c/o left hand cellulitis due to dog bite. Patient Tobacco Use Status: Never used Tobacco Allergies No Known Allergies [No Known Allergies*] Allergy (Verified 06/26/23 13:58) Do you need a note to return to daycare/school/sports/work: Yes HPI EST/left hand cellulitis? HPI Details Patient is a 47-year-old male who comes to the walk-in clinic with his partner, who reports that he had been scratched up interfering with an altercation between his dog and another. He states that he put his hand near his dog's mouth, and the wounds were as a result of his own dog. No rabies risk. Pending tetanus status. His had been advising that he get the wounds evaluated, but he hadn't wanted to. They were starting to heal initially, but then started to develp some redness around them, as well as some leakage in one between the digits. He is higher risk for infection as he has diabetes. He denies fever/chills, n/v/d or other significant associated symptoms of systemic infection. No weakness, numbness or tingling. [facility] Medical History (Updated 04/29/22 @ 00:03 by Micheal Leonardo) CHF (congestive heart failure) Hyperlipidemia Hypertension Diabetes Surgical History (Updated 04/20/22 @ 06:05 by Kris Gleason MD) No pertinent past surgical history Family History (Updated 04/20/22 @ 06:05 by Kris Gleason MD) Father Coronary artery disease Social History Patient Tobacco Use Status: Never used Tobacco service: No Current occupational status: employed Review of Systems Const All systems reviewed & are unremarkable except as noted in HPI and below Physical Exam Vital Signs: Last Vital Signs Temp 98.4 F 06/26/23 13:57 Pulse 98 06/26/23 13:57 BP 162/90 H 06/26/23 13:57 Pulse Ox 99 09/23/23 13:57 BMI result Body Mass Index 27.3 Skin Other: scattered superficial scratches to the left dorsum of hand, most covered with eschars with mild surrounding erythema, no appreciable edema or warmth. He has full ROM and good strength to the hand, with NVI distally. Between the 3rd/4th digits there is a cracked wound that is not completely closed, with no current discharge. Assessment & Plan Assessment & Plan (1) Cellulitis: Code(s): L03.90 - Cellulitis, unspecified Qualifiers: Laterality: left Site of cellulitis: extremity Site of cellulitis of extremity: upper extremity Qualified Code(s): L03.114 - Cellulitis of left upper limb Plan: Patient with cellulitis to multiple relatively superficial dog bite wounds to the left hand. He did not report this until 4 days out from injury, as he did not have any pain to the areas, and he was not worried about rabies as it is his dog that was involved. All paperwork from the incident already completed per patient. Pending tetanus status. He has been keeping the wounds, clean covered and dry but he has been using his hands and they are stating to look mildly cellulitic. He is high risk for this due to the diabetes. I wrote him for augmentin and advised that he reach out to PCP or come back to the walk in if it is persisting or worsening, or to go to the ED if needed. We discussed how serious bog bite injuries near joints can get, including needing surgery or amputated digits, and he understood this. Medications: New amoxicillin-pot clavulanate 875-125 mg 1 tab PO BID 20 tabs 0RF 10 days Coding Level of Care Code Est Pt Level 4 (88900) Diagnoses Cellulitis of left upper extremity L03.114 Laterality: left Site of cellulitis: extremity Site of cellulitis of extremity: upper extremity
== END 2023-06-26 14:30 | disposition home or self-care (01) ==
PROVIDERS: PCP Registered Nurse; Visit Provider Physician Assistant Medical
DX: L03.114 Cellulitis of left upper limb (principal)
CPT/HCPCS: 99214